=== PATIENT | male | born 1995 | race Caucasian/White ===

== ENCOUNTER 2020-12-02 10:58 | Emergency (ER) | payer OTHER ==
[~2020-12-02] VITALS: Ht 188 cm; Wt 76.5 kg
--- NOTE | 2020-12-02 12:59 | REP ---
INDICATION: concern for abscess, redness, swelling lat to nipple. COMPARISON: None TECHNIQUE: Real-time sonographic evaluation of LEFT breast performed. FINDINGS: At the site of redness and swelling lateral to the left nipple there is a complex hypoechoic area which measures approximately 1.0 x 0.8 x 1.0 cm. This is suspicious for a small abscess. There is adjacent soft tissue edema and hyperemia with Doppler evaluation. IMPRESSION: At the site of redness and swelling lateral to the left nipple there appears to be a small, 1 cm complex fluid collection which is suspicious for a small abscess. RECOMMENDATION: Clinical correlation. <Electronically signed by Alfredo Gautam > 12/02/20 [id number]
[2020-12-02] MEDS ORDERED: CEPH500C PO (13:39)
[2020-12-02] MEDS ORDERED: LIDOCAINE 1% MDV 20ML VIAL SC ONE (13:40)
[2020-12-02] MEDS ORDERED: IBUP80TA PO (13:40)
[2020-12-02] MEDS ORDERED: IBUPROFEN 800 MG TAB PO ONE (13:55)
[2020-12-02] MEDS ORDERED: CEPHALEXIN 500 MG CAP PO ONE (13:55)
[2020-12-02 14:08] VITALS: BP 143/85
[2020-12-08] MEDS ORDERED: CLIN150C15 PO (07:51)
== END 2020-12-02 14:14 | disposition home or self-care (01) ==
LOC: M ED 10:58
DX: L03.313 Cellulitis of chest wall (principal); L02.213 Cutaneous abscess of chest wall

== ENCOUNTER 2021-03-18 13:09 | Emergency (ER) | payer OTHER ==
[~2021-03-18] VITALS: Ht 185.4 cm; Wt 79.4 kg
[2021-03-18 13:09] VITALS: BP 151/81
[~2021-03-18 13:09] MED LIST: CEPH500C PO; CLIN150C17 PO; IBUP80TA PO
[2021-03-18] MEDS ORDERED: TETRACAINE 0.5% OPHTH SOLN 4ML OU ONE (16:25)
[2021-03-18] MEDS ORDERED: FLUORESCEIN OPHTH 1 MG STRIP OU ONE (16:25)
[2021-03-18] MEDS ORDERED: CIPROFLOXACIN 0.3% OPHTH SOLN 2.5ML OD ONE (16:45)
== END 2021-03-18 17:06 | disposition home or self-care (01) ==
LOC: M ED 13:09
DX: S05.01XA Injury of conjunctiva and corneal abrasion without foreign body, right eye, initial encounter (principal); X58.XXXA Exposure to other specified factors, initial encounter; Y92.89 Other specified places as the place of occurrence of the external cause

== ENCOUNTER 2021-08-09 17:07 | Emergency (ER) | payer OTHER ==
[~2021-08-09] VITALS: Ht 188 cm; Wt 75.0 kg
[2021-08-09 17:08] VITALS: BP 131/60
[2021-08-09] MEDS ORDERED: IBUP200T46 PO (18:28)
[2021-08-09] MEDS ORDERED: TRAZ-252 PO (18:28)
== END 2021-08-09 23:08 | disposition left against medical advice (07) ==
LOC: M ED 17:07
DX: Z53.29 Procedure and treatment not carried out because of patient's decision for other reasons (principal)

== ENCOUNTER 2022-11-06 16:14 | Emergency (ER) | payer OTHER ==
[~2022-11-06] VITALS: Ht 188 cm; Wt 76.4 kg
[~2022-11-06 16:14] MED LIST changes: +IBUP200T46 PO; +TRAZ-252 PO
[2022-11-06] MEDS ORDERED: HYDR-3363 (16:28)
[2022-11-06] MEDS ORDERED: DICY10CA13 (16:28)
[2022-11-06 18:12] LABS: GC DNA AMPLIFICATION NEGATIVE (NEGATIVE)
[2022-11-06 18:41] VITALS: BP 166/84
== END 2022-11-06 18:44 | disposition home or self-care (01) ==
LOC: M ED 16:14
DX: Z11.3 Encounter for screening for infections with a predominantly sexual mode of transmission (principal); F17.200 Nicotine dependence, unspecified, uncomplicated